=== PATIENT | female | born 1995 | race African-American/Black ===

== ENCOUNTER 2023-06-06 01:25 | Emergency (ER) | payer MEDICAID ==
[~2023-06-06] VITALS: Ht 157.5 cm; Wt 89.3 kg
[2023-06-06 01:39] VITALS: BP 138/88; PULSE 94; RESP 16; TEMP 98.6; O2SAT 99
[2023-06-06] MEDS ORDERED: DOXY100T28 MT (02:10)
[2023-06-06] MEDS ORDERED: METR-167 MT (02:10)
[2023-06-06] MEDS: CEFTRIAXONE SODIUM 500MG VIAL IM ONE (02:43)
[2023-06-06] MEDS: DOXYCYCLINE HYCLATE 100MG CAPSULE PO ONE (02:43)
[2023-06-06 03:13] LABS: CLARITY URINE CLEAR (CLEAR); COLOR URINE YELLOW (YELLOW); GLUCOSE URINE NEGATIVE (NEGATIVE); KETONES URINE NEGATIVE (NEGATIVE); LEUKOCYTE ESTERASE URINE NEGATIVE (NEGATIVE); NITRITE URINE NEGATIVE (NEGATIVE); OCCULT BLOOD URINE NEGATIVE (NEGATIVE); PROTEIN URINE NEGATIVE (NEGATIVE); SPECIFIC GRAVITY URINE 1.009 (1.005-1.030); UROBILINOGEN URINE 0.2 E.U./dL (0.2-1.0)
== END 2023-06-06 02:45 | disposition home or self-care (01) ==
LOC: ER 01:25
DX: A64 Unspecified sexually transmitted disease (principal); J45.909 Unspecified asthma, uncomplicated
CPT/HCPCS: 99283; 81003; 81025; 96372; J0696